=== PATIENT | male | born 1985 | race Caucasian/White ===

== ENCOUNTER 2019-03-16 19:13 | Emergency (ER) | payer OTHER ==
[2019-03-16] MEDS: ONDANSETRON (ODT) 4 MG TAB ODT (22:49)
[2019-03-16] MEDS: morphine 4 MG/ML VIAL IM (22:50)
[2019-03-16] MEDS: KETOROLAC 30 MG INJ IM (22:51)
== END 2019-03-17 00:44 | disposition home or self-care (01) ==
LOC: FTE 03-17 00:44
DX: S06.0X0A Concussion without loss of consciousness, initial encounter (principal); S10.93XA Contusion of unspecified part of neck, initial encounter; S30.0XXA Contusion of lower back and pelvis, initial encounter; R07.9 Chest pain, unspecified; V49.50XA Passenger injured in collision with unspecified motor vehicles in traffic accident, initial encounter
CPT/HCPCS: 70450; 71046; 72125; 72131; 96372; 99285-25